=== PATIENT | male | born 1960 | race Caucasian/White ===

== ENCOUNTER 2024-01-04 12:37 | Emergency (ER) | payer SELFPAY ==
[~2024-01-04] VITALS: Ht 182.9 cm; Wt 69.8 kg
[2024-01-04 14:13] LABS: BASO % 0.3 % (0.0-1.0); EOS % 0.3 % (0.0-3.0); HEMATOCRIT 42.5 % (42.0-52.0); HEMOGLOBIN 14.5 g/dl (13.5-17.5); LYMPH # 2.1 10^3/uL (1.5-5.0); LYMPH % 22.4 % (24.0-44.0); MEAN CORPUSCULAR HEMOGLOBIN 31.9 pg (27.0-33.0); MEAN CORPUSCULAR HGB CONC 34.1 g/dl (32.0-36.5); MEAN CORPUSCULAR VOLUME 93.6 fl (80.0-96.0); MONO # 0.5 10^3/uL (0.0-0.8); MONO % 5.6 % (2.0-8.0); NEUTROPHILS # 6.6 10^3/uL (1.5-8.5); NEUTROPHILS % 71.3 % (36.0-66.0); PLATELET COUNT, AUTOMATED 252 10^3/uL (150-450); RED BLOOD COUNT 4.54 10^6/uL (4.30-6.10); VENOUS BASE EXCESS -0.9 (-2.0-2.0); VENOUS HCO3 22.3 MMOL/L (23.0-27.0); VENOUS O2 SATURATION 50.4 % (60.0-80.0); VENOUS PARTIAL PRESSURE CO2 33.4 mmHg (38.0-50.0); VENOUS PARTIAL PRESSURE O2 25.6 mmHg (30.0-50.0); VENOUS PH 7.443 UNITS (7.330-7.430); VENOUS STANDARD HCO3 22.5 MMOL/L; VENOUS TOTAL CO2 23.4 MMOL/L (24.0-28.0); WHITE BLOOD COUNT 9.2 10^3/uL (4.0-10.0)
[2024-01-04 14:36] LABS: CK-MB VALUE MASS 1.8 NG/ML (<3.6)
[2024-01-04 14:37] LABS: ALKALINE PHOSPHATASE 83 U/L (46-116); ALT/SGPT 17 U/L (7.0-40); AST/SGOT 8 U/L (<34); BILIRUBIN,DIRECT 0.1 MG/DL (<0.4); BILIRUBIN,TOTAL 0.5 MG/DL (0.3-1.2); BLOOD UREA NITROGEN 15 MG/DL (9-23); CALCIUM LEVEL 9.6 MG/DL (8.3-10.6); CARBON DIOXIDE LEVEL 23 MMOL/L (20-31); CHLORIDE LEVEL 109 MMOL/L (98-107); CREATININE FOR GFR 0.97 MG/DL (0.70-1.30); GLOMERULAR FILTRATION RATE > 60.0 (>49); GLUCOSE, FASTING 105 MG/DL (74-106); POTASSIUM SERUM 4.8 MMOL/L (3.5-5.1); SODIUM LEVEL 138 MMOL/L (136-145); TOTAL PROTEIN 7.2 G/DL (5.7-8.2)
[2024-01-04 14:39] LABS: THYROXINE (T4) 10.9 UG/DL (4.5-10.9)
[2024-01-04 14:40] LABS: CPK CREATINE PHOSPHOKINASE 102 U/L (46-171); MB/CK RELATIVE INDEX 1.76 (< OR =4); THYROID STIMULATING HORMONE 0.612 uIU/ML (0.55-4.78)
[2024-01-04] MEDS ORDERED: ISOVUE-370 76% 100ML VIAL As Ordered ONE (17:18)
[2024-01-04 19:17] LABS: HEMOGLOBIN A1c 5.5 % (4.0-6.0)
[2024-01-04] MEDS ORDERED: VENTAER INH (20:03)
[2024-01-04 20:16] VITALS: BP 125/79; TEMP 97.8; O2SAT 98
== END 2024-01-04 20:43 | disposition home or self-care (01) ==
LOC: M ED 12:37
DX: J45.909 Unspecified asthma, uncomplicated (principal); D49.4 Neoplasm of unspecified behavior of bladder; F12.90 Cannabis use, unspecified, uncomplicated
CPT/HCPCS: 36415; 71045; 71260; 74177; 80048; 80076; 81001; 82550; 82553; 82803; 83036; 83605; 83735; 83880; 84436; 84443; 84484; 85025; 87040; 87088; 87184; 93005; 99284; Q9967